=== PATIENT | male | born 1985 | race Caucasian/White ===

== ENCOUNTER 2018-09-22 08:08 | Emergency (ER) | payer MEDICAID ==
[~2018-09-22] VITALS: Ht 180.3 cm; Wt 81.8 kg
[2018-09-22 08:11] VITALS: BP 109/75; Ht 180.3 cm; Wt 81.8 kg
[2018-09-22] MEDS ORDERED: ULTRAM50 MG PO (08:50)
== END 2018-09-22 09:24 | disposition home or self-care (01) ==
LOC: D.ER 08:08
DX: M54.6 Pain in thoracic spine (principal)

== ENCOUNTER 2019-01-21 09:55 | Emergency (ER) | payer MEDICAID ==
[~2019-01-21] VITALS: Ht 180.3 cm; Wt 79.5 kg
[~2019-01-21 09:55] MED LIST: ULTRAM50 MG PO
[2019-01-21 10:12] VITALS: Ht 180.3 cm; Wt 79.5 kg
[2019-01-21 11:24] LABS: BASOPHILS 0.2 % (0-2); EOSINOPHILS 1.7 % (0-7); HEMATOCRIT 41.5 % (42.0-54.0); HEMOGLOBIN 14.4 g/dL (13.5-17.5); IMMATURE GRANULOCYTES 0.2 % (0-5); LYMPHOCYTES 30.6 % (15-50); MCH 30.4 pg (26.0-34.0); MCHC 34.7 g/dL (31.0-37.0); MCV 87.6 fL (80.0-100.0); MEAN PLATELET VOLUME 10.8 fL (7.4-10.4); MONOCYTES 5.1 % (2-11); NEUTROPHILS 62.2 % (40-80); RBC 4.74 10x6/uL (4.20-6.10); RDW 12.5 % (11.5-14.5); WBC 5.9 10x3/uL (4.8-10.8)
[2019-01-21 11:28] LABS: PLATELET COUNT 142 10x3/uL (130-400)
[2019-01-21 11:36] LABS: ALBUMIN 4.5 g/dL (3.4-5.0); ALKALINE PHOSPHATASE 55 U/L (46-116); ALT (SGPT) 17 U/L (10-68); BILIRUBIN - TOTAL 0.83 mg/dL (0.2-1.3); CALC OSMOLALITY 281 mosm/kg (275-300); CALCIUM 9.4 mg/dL (8.5-10.1); CARBON DIOXIDE 30.3 mmol/L (21.0-32.0); CHLORIDE - SERUM 106 mmol/L (98-107); CREATININE - SERUM 0.9 mg/dL (0.6-1.3); GLUCOSE 98 mg/dL (74-106); POTASSIUM - SERUM 4.6 mmol/L (3.5-5.1); PROTEIN - SERUM 7.2 g/dL (6.4-8.2); SODIUM 141 mmol/L (136-145); UREA NITROGEN 14 mg/dL (7-18); eGFR NON AFRICAN AMERICAN > 90 mL/min (90-120)
[2019-01-21 11:51] LABS: APPEARANCE CLEAR (CLEAR); COLOR YELLOW (YELLOW); SPECIFIC GRAVITY 1.015 (1.005-1.020)
[2019-01-21 11:52] LABS: BILIRUBIN NEGATIVE (NEGATIVE); GLUCOSE NEGATIVE (NEGATIVE); KETONE NEGATIVE (NEGATIVE); NITRITE NEGATIVE (NEGATIVE); PROTEIN NEGATIVE (NEGATIVE); UROBILINOGEN NORMAL (NORMAL)
[2019-01-21] MEDS ORDERED: MEDROL DOSE PACK4 MG PO (12:13)
[2019-01-21] MEDS ORDERED: PHENERGAN DM SYR5 ML PO (12:13)
[2019-01-21 13:43] VITALS: BP 103/58
== END 2019-01-21 13:19 | disposition home or self-care (01) ==
LOC: D.ER 09:55
PROVIDERS: Emergency Medicine
DX: B34.9 Viral infection, unspecified (principal)